=== PATIENT | female | born 1960 | race Caucasian/White ===

== ENCOUNTER 2017-04-23 07:07 | Emergency (ER) | payer OTHER ==
[~2017-04-23] VITALS: Ht 165.1 cm; Wt 127.0 kg
[2017-04-23 07:11] VITALS: BP 152/105
[2017-04-23] MEDS ORDERED: HYDROCHLOROTH12.5 M1 PO (07:22)
[2017-04-23] MEDS ORDERED: LEVOTHYROXIN0.075 MG PO (07:23)
[2017-04-23] MEDS ORDERED: BENADRYL25 MG PO (07:23)
[2017-04-23] MEDS ORDERED: MOBIC15 MG PO (07:23)
== END 2017-04-23 08:09 | disposition home or self-care (01) ==
LOC: ER 07:07
DX: M25.562 Pain in left knee (principal)

== ENCOUNTER → 2017-06-11 | Outpatient (CLI) | payer OTHER ==
[~2017-06-11] MED LIST: BENADRYL25 MG PO; HYDROCHLOROTH12.5 M1 PO; LEVOTHYROXIN0.075 MG PO; MOBIC15 MG PO
== END ==
LOC: MRI 05-26 08:18
DX: S83.242A Other tear of medial meniscus, current injury, left knee, initial encounter (principal); X58.XXXA Exposure to other specified factors, initial encounter; Y93.89 Activity, other specified; Y92.89 Other specified places as the place of occurrence of the external cause; Y99.8 Other external cause status

== ENCOUNTER → 2018-02-03 | Outpatient (CLI) | payer OTHER | LOC: CAT 07:58 | DX: R19.03 Right lower quadrant abdominal swelling, mass and lump (principal); K76.0 Fatty (change of) liver, not elsewhere classified; K43.9 Ventral hernia without obstruction or gangrene; R10.84 Generalized abdominal pain; R11.2 Nausea with vomiting, unspecified ==

== ENCOUNTER → 2018-02-25 | Outpatient (CLI) | payer OTHER | LOC: RAD 09:52 | DX: R91.1 Solitary pulmonary nodule (principal) ==

== ENCOUNTER → 2018-11-04 | Outpatient (CLI) | payer OTHER ==
[~2018-11-04] VITALS: Ht 162.6 cm; Wt 124.7 kg
[~2018-11-04] MED LIST changes: -LEVOTHYROXIN0.075 MG PO; +OMEPRAZOLE40 MG PO; +SYNTHROID75 MCG PO
--- NOTE | ~2018-11-04 | P ---
[facility] [place] [address] PROCEDURE REPORT Name: LENA STRINGER Room #: REG [facility] Brennan#: [id number] Admission: 11/04/18 ������������������ Attend Phys: Alex Bonilla Discharge: ������������������ Date of : 58 Report #: [id number] THIS REPORT FOR: //name// CC: Alex Trimble MD DATE OF SERVICE: 11/04/2018 PROCEDURE: Colonoscopy with polypectomy. HISTORY OF PRESENT ILLNESS: The patient is a 58-year-old female who was recently seen in the office with intermittent abdominal pain, nausea, vomiting. No previous history of colonoscopy. No family history of colon cancer. She has a history of ventral hernia, status post repair with recurrence. CT scan of the abdomen and pelvis last January showing several large recurrent ventral hernias. She has had a previous hysterectomy with significant scarring noted. Plan is for colonoscopy. DESCRIPTION OF PROCEDURE: The risks and benefits of the procedure were explained to the patient, those risks including but not limited to bleeding, perforation, and the risk of sedation. She understood these risks and gave informed consent. Sedation was given using propofol per anesthesia. Next, a digital rectal exam was initially performed, which was normal. Next, using a standard Olympus colonoscope, the scope was placed in the patient's anus and advanced under direct vision to the cecum. The overall prep was excellent. The cecum and ileocecal valve were normal in appearance. The ascending colon was normal. In the transverse colon, an 8 mm partially pedunculated polyp was noted. This was removed by snare cautery, otherwise normal. Descending colon was normal. A few diverticula were noted in the sigmoid colon. No evidence of inflammation. Another 6 mm partially pedunculated polyp noted in the sigmoid colon, also removed by snare cautery. In the rectum, there was single 4 mm sessile polyp. This was removed by cold forceps. On retroflexion, no abnormalities were noted. The scope was then withdrawn and the procedure terminated. The patient tolerated the procedure well. IMPRESSION: 1. Three colonic polyps. 2. Sigmoid diverticulosis without inflammation. 3. Otherwise, normal colonoscopy. RECOMMENDATIONS: 1. Await biopsy results. 2. Repeat colonoscopy in 5 years. 3. A script for Levsin was given during office visit recently. She has not tried this for intermittent abdominal pain. Plan is to try Levsin on a p.r.n. [address] [address] PROCEDURE REPORT Name: LENA STRINGER Room #: REG CL Brennan#: [id number] Admission: 11/04/18 ������������������ Attend Phys: Alex Bonilla Discharge: ������������������ Date of : 58 Report #: [id number] basis. 4. If this is not helpful, we discussed the possibility of a small bowel follow through. Thank you for allowing me to participate in her care. ��������������������������������������������� ���������������������������������������� By: ��������������������������������������������� [id number] Alex Jones MD /annita
--- NOTE | ~2018-11-04 | P ---
[facility] [place] [address] PROCEDURE REPORT Name: LENA STRINGER Room #: REG Isabelle Amin#: [id number] Admission: 11/04/18 ������������������ Attend Phys: Alex Bonilla Discharge: ������������������ Date of : 58 Report #: [id number] THIS REPORT FOR: //name// CC: Alex Trimble MD DATE OF SERVICE: 11/04/2018 PROCEDURE PERFORMED: Upper endoscopy with biopsies and esophageal dilation. HISTORY OF PRESENT ILLNESS: The patient is a 58-year-old female who was seen by myself in the office on 10/13/2018 for intermittent abdominal pain, nausea, vomiting. Symptoms have been ongoing for several years, but has become progressively worse. She has a history of ventral hernia, status post repair with recurrence and has mesh in place. She does have a history of gastroesophageal reflux disease, takes a PPI on a daily basis. She does also complain of dysphagia. She has never had a previous endoscopy. Plan is for EGD and colonoscopy today. DESCRIPTION OF PROCEDURE: The risks and benefits of the procedure were explained to the patient, those risks including but not limited to bleeding, perforation, the risk of sedation. She understood these risks and gave informed consent. Sedation was given using propofol per Anesthesia. Next, using a standard Olympus upper endoscope, the scope was placed in the patient's mouth and advanced under direct vision through the esophagus, stomach and into the second portion of the duodenum. Larynx was normal in appearance. The esophagus was normal throughout. The GE junction was normal. Overall, the gastric mucosa was normal in the fundus, a mild gastritis was noted in the mid body and the antrum. Biopsies were obtained. There was no evidence of ulcerations or erosions. The pylorus was normal and patent. The duodenal bulb, first and second portion were normal. Biopsies were obtained to rule out the possibility of celiac sprue. Scope was then withdrawn and the procedure terminated. The patient tolerated the procedure well. Esophageal dilation was performed with 48[place] Savary dilation. No evidence of mucosal tear after dilation. IMPRESSION: 1. Mild gastritis. 2. Otherwise, normal upper endoscopy. RECOMMENDATIONS: 1. Await biopsy results. 2. Continue daily PPI therapy. 3. We will proceed with colonoscopy next today. [address] [address] PROCEDURE REPORT Name: LENA STRINGER Room #: REG MARY ANN Amin#: [id number] Admission: 11/04/18 ������������������ Attend Phys: Alex Bonilla Discharge: ������������������ Date of : 58 Report #: [id number] Thank you for allowing me to participate in her care. ��������������������������������������������� ���������������������������������������� By: ��������������������������������������������� [id number] Alex Jones MD /nt
--- NOTE | 2018-11-06 10:07 | PATH ---
[facility] [place] [address] PATHOLOGY RPT PROCEDURE Name: SHERON WILSON Room #: REG MARY ANN Venkatesh.R.#: [id number] ������������������ Admission: 11/04/18 ������������������ Date of : 58 Discharge: Report #: [id number] Path Case #: [id number] [facility] Accession Number: [id number] . 01 Material submitted: . PART A: BX OF DUODENUM R/O CELIAC SPRUE PART B: BX GASTRIC R/O H-PYLORI PART C: POLYP AT TRANSVERSE COLON PART D: POLYP AT SIGMOID COLON PART E: BX OF RECTAL POLYP . 01 Clinical history: . Dysphagia, abdominal pain, nausea, vomiting, screening, diverticulosis, rectal polyp . 02 Diagnosis: A. Small bowel mucosa, duodenum rule out celiac sprue, endoscopic biopsy: - No diagnostic abnormalities present. - Negative for villous blunting or increase in intraepithelial lymphocytes. . B. Gastric mucosa, gastric rule out H. pylori, endoscopic biopsy: - Mild chronic gastritis with features of reactive gastropathy. - Negative for intestinal metaplasia or atrophy. - Negative for Helicobacter pylori (properly controlled immunohistochemical stain performed). . C. Polyp, at transverse colon, endoscopic biopsy: - Tubular adenoma. - Negative for high-grade dysplasia. . D. Polyp, at sigmoid colon, endoscopic biopsy: - Tubular adenoma. - Negative for high-grade dysplasia. . E. Polyp, rectal polyp, endoscopic biopsy: - Hyperplastic polyp. - Negative for dysplasia. (IUV:pit 11/05/2018) QTP/11/05/2018 . 02 Electronically signed: . Karissa Atkinson MD, Pathologist NPI- [id number] . 01 Gross description: . A. The specimen is received in formalin, labeled "Sheron Wilson BX [address] [address] PATHOLOGY RPT PROCEDURE Name: SHERON WILSON Room #: REG CLI [facility]#: [id number] ������������������ Admission: 11/04/18 ������������������ Date of : 58 Discharge: Report #: [id number] Path Case #: [id number] of duodenum, rule out celiac sprue", are several turner mucosal fragments measuring 0.5 x 0.5 x 0.2 cm, entirely submitted in A1. . B. The specimen is received in formalin, labeled "Sheron Wilson BX gastric rule out H. pylori", are several mucosal fragments measuring 0.5 x 0.5 x 0.2 cm in aggregate, entirely submitted in B1. . C. The specimen is received in formalin, labeled "Sheron Wilson, polyp at transverse colon", is a pedunculated turner, rubbery polyp with a 0.2 cm stalk and 0.5 x 0.3 x 0.3 cm head. The margin is inked black, bisected and entirely submitted in C1. . D. The specimen is received in formalin, labeled "Sheron Wilson, polyp at sigmoid colon", are two turner, rubbery, sessile polyps measuring 0.3 x 0.2 x 0.2 cm and 0.7 x 0.3 x 0.2 cm (bisected). Both are inked black and entirely submitted in D1. . E. The specimen is received in formalin, labeled "Sheron Wilson, BX of rectal polyps", are two turner mucosal tissues measuring 0.2 cm and 0.3 cm in greatest dimension, entirely submitted in E1. ([facility]; 11/04/2018) SHS/SHS . 02 Pathologist provided ICD-10: K29.50, K31.9, D12.3, D12.5, K62.1 . 02 CPT . 264842, 101366, 747884, [id number], [id number], [id number] Specimen Comment: A courtesy copy of this report has been sent to Specimen Comment: [phone], . Specimen Comment: Report sent to / DR PATTEN Specimen Comment: A duplicate report has been generated due to demographic updates. Performed at: [address], [place], [place] [id number] MD López Matias MD Phone: [phone] Performed at: [address] [id number] MD Karissa Atkinson MD Phone: [phone]
== END | disposition home or self-care (01) ==
LOC: GI 07:12
DX: D12.3 Benign neoplasm of transverse colon (principal); D12.5 Benign neoplasm of sigmoid colon; K62.1 Rectal polyp; K29.50 Unspecified chronic gastritis without bleeding; K31.9 Disease of stomach and duodenum, unspecified; J45.909 Unspecified asthma, uncomplicated; I10 Essential (primary) hypertension; K21.9 Gastro-esophageal reflux disease without esophagitis; E03.9 Hypothyroidism, unspecified; Z90.49 Acquired absence of other specified parts of digestive tract; Z98.890 Other specified postprocedural states; Z79.899 Other long term (current) drug therapy
CPT/HCPCS: 62110; 62900

== ENCOUNTER → 2018-12-29 | Outpatient (CLI) | payer OTHER | LOC: ULTRA 12:50 | DX: M79.89 Other specified soft tissue disorders (principal); M79.604 Pain in right leg; M79.605 Pain in left leg; R60.9 Edema, unspecified; R09.89 Other specified symptoms and signs involving the circulatory and respiratory systems ==